=== PATIENT | male | born 1990 | race American Indian/Alaskan Native ===

== ENCOUNTER 2020-03-09 21:23 | Emergency (ER) | payer SELFPAY ==
[2020-03-09] MEDS ORDERED: ASPIRIN 325 MG TAB PO ONE (22:26)
[2020-03-09 23:16] LABS: Basophils % (Auto) 0.7 % (0.0-1.8); Eosinophils % (Auto) 0.2 % (0.0-4.3); Hematocrit 40.9 % (35.5-45.6); Hemoglobin 14.2 gm/dl (11.8-15.2); Lymphocytes # (Auto) 0.5 K/mm3 (1.2-5.4); Lymphocytes % (Auto) 9.8 % (13.4-35.0); Mean Corpuscular HGB Conc 35 % (32-34); Mean Corpuscular Volume 88 fl (84-94); Monocytes # (Auto) 0.6 K/mm3 (0.0-0.8); Monocytes % (Auto) 12.7 % (0.0-7.3); Platelet Count 156 K/mm3 (140-440); Red Blood Count 4.63 M/mm3 (3.65-5.03); Red Cell Distribution Width 12.5 % (13.2-15.2)
--- NOTE | 2020-03-09 23:32 | XRay Report ---
CHEST 2 VIEWS INDICATION: MAIN. Acute generalized chest pain COMPARISON: None FINDINGS: SUPPORT DEVICES: None. HEART: Within normal limits. LUNGS/PLEURA: No acute air space or interstitial disease. No pneumothorax. ADDITIONAL FINDINGS: None. IMPRESSION: 1. No acute findings. Signer Name: Adolph Velazco MD Signed: 03/09/2020 11:28 PM Workstation Name: [id number]
[2020-03-10 00:01] LABS: BUN/Creatinine Ratio 7; Blood Urea Nitrogen 16 mg/dL (9-20); Hemolysis Index 24
[2020-03-10] MEDS ORDERED: cloNIDine 0.1 MG TAB PO ONE (02:21)
--- NOTE | 2020-03-10 02:25 | Emergency Department Report ---
ED General Adult HPI - General Chief complaint: High BP Stated complaint: MIGRAINE HBP Time Seen by Provider: 03/10/20 02:15 Source: patient, EMS Mode of arrival: Wheelchair Limitations: No Limitations - History of Present Illness Initial comments: Patient is 29 years old male with history of hypertension, chronic kidney disease stage II and cerebral palsy. Patient presented to the ER complaining of headache and high blood pressure. Patient stated that he does not remember the last time he took his blood pressure medication because he cannot afford it. Patient describes his headache as global. Patient denied neck pain. No focal weakness, numbness or tingling sensation. - Related Data Allergies Allergy/AdvReac Type Severity Reaction Status Date / Time No Known Allergies Allergy Verified 03/09/20 22:26 ED Review of Systems ROS: Stated complaint: MIGRAINE HBP Other details as noted in HPI Comment: All other systems reviewed and negative Constitutional: denies: chills, fever Respiratory: denies: cough, shortness of breath, SOB with exertion Cardiovascular: denies: chest pain, palpitations Gastrointestinal: denies: abdominal pain, nausea, vomiting Neurological: headache. denies: weakness, numbness, paresthesias, confusion, abnormal gait ED Past Medical Hx - Past Medical History Previous Medical History?: Yes Hx Hypertension: Yes Hx Renal Disease: Yes (stage 2) Additional medical history: cerbal palsey - Surgical History Past Surgical History?: Yes Additional Surgical History: kidney biospy - Social History Smoking Status: Never Smoker Substance Use Type: None ED Physical Exam - General Limitations: No Limitations General appearance: alert, in no apparent distress - Head Head exam: Present: atraumatic, normocephalic, normal inspection - Eye Eye exam: Present: normal appearance, PERRL - ENT ENT exam: Present: normal exam, normal orophraynx, mucous membranes moist - Neck Neck exam: Present: normal inspection, full ROM. Absent: tenderness, meningismus, lymphadenopathy, thyromegaly - Respiratory Respiratory exam: Present: normal lung sounds bilaterally - Cardiovascular Cardiovascular Exam: Present: regular rate, normal rhythm, normal heart sounds - GI/Abdominal GI/Abdominal exam: Present: soft, normal bowel sounds. Absent: distended, tenderness, guarding, rebound, rigid, organomegaly, mass, bruit, pulsatile mass, hernia - Extremities Exam Extremities exam: Present: normal inspection, full ROM, normal capillary refill. Absent: tenderness, pedal edema, calf tenderness - Back Exam Back exam: Present: normal inspection, full ROM. Absent: CVA tenderness (R), CVA tenderness (L) - Neurological Exam Neurological exam: Present: alert, oriented X3, CN II-XII intact, normal gait, reflexes normal. Absent: motor sensory deficit - Psychiatric Psychiatric exam: Present: normal mood - Skin Skin exam: Present: warm, intact, normal color ED Course Vital Signs 03/09/20 03/10/20 03/10/20 22:24 03:00 03:30 Temperature 98.6 F Pulse Rate 89 91 H Respiratory 16 Rate Blood Pressure 191/134 183/125 Blood Pressure 202/136 [Right] O2 Sat by Pulse 97 100 97 Oximetry ED Medical Decision Making - Lab Data Result diagrams: 03/09/20 22:35 03/09/20 22:35 - EKG Data -: EKG Interpreted by Me Rate: normal - EKG Data Interpretation: no acute changes - Radiology Data Radiology results: report reviewed - Medical Decision Making Patient is 29 years old male with history of hypertension, chronic kidney disease stage II and cerebral palsy. Patient presented to the ER complaining of headache and high blood pressure. Patient stated that he does not remember the last time he took his blood pressure medication because he cannot afford it. Patient describes his headache as global. Patient denied neck pain. No focal weakness, numbness or tingling sensation. Labs reviewed and showed a chronic kidney function deterioration with a creati nine of 2.2. CT brain is negative for acute finding. Patient received clonidine 0.2 mg in the emergency room which helped his blood pressure greatly. Patient stated that his headache is almost gone now. I started patient on amlodipine and advised to follow-up with his primary doctor in the next 2 to 3 days and to return to the ER if he develop any new symptoms. Critical care attestation.: If time is entered above; I have spent that time in minutes in the direct care of this critically ill patient, excluding procedure time. ED Disposition Clinical Impression: Malignant hypertension, Chronic kidney disease, Acute headache Disposition: - TO HOME OR SELFCARE Is pt being admited?: No Condition: Stable Instructions: Hypertension (ED), Chronic Kidney Disease, Adult, [id number], Hypertension, Adult, [id number] Referrals: PRIMARY CARE, [Primary Care Provider] - 3-5 Days
--- NOTE | 2020-03-10 02:55 | Cat Scan Report ---
CT head without contrast INDICATION : Patient complains of a headache and high blood pressure History of recurring headaches.. TECHNIQUE: Axial imaging performed from the skull apex through the skull base without the use of con trast. All CT scans at this location are performed using CT dose reduction for ALARA by means of aut omated exposure control. COMPARISON: None FINDINGS: Parenchyma: No acute intracranial hemorrhage or parenchymal abnormality. Probable ketan cisterna magn a in the posterior fossa. Ventricles: Ventricles are normal in size and appear symmetric. Soft tissues: Soft tissues including the orbits appear normal. Bones: No acute osseous abnormality. Sinuses: Sinuses and mastoid air cells are clear. IMPRESSION: No acute abnormality. Signer Name: Adolph Velazco MD Signed: 03/10/2020 2:50 AM Workstation Name: [id number]
[2020-03-10 04:47] VITALS: BP 161/111
== END 2020-03-10 04:58 | disposition home or self-care (01) ==
LOC: ED 21:23
DX: I12.9 Hypertensive chronic kidney disease with stage 1 through stage 4 chronic kidney disease, or unspecified chronic kidney disease (principal); N18.2 Chronic kidney disease, stage 2 (mild); R51.9 Headache, unspecified; Z98.890 Other specified postprocedural states
CPT/HCPCS: 36415; 70450; 71046; 80048; 84484; 85025; 93005